=== PATIENT | male | born 1950 | race Two or more races ===

== ENCOUNTER 2024-10-19 08:45 | Emergency (ER) | payer MEDICARE, OTHER ==
[~2024-10-19] VITALS: Ht 165.1 cm; Wt 70.3 kg
[2024-10-19 08:59] VITALS: TEMP 98.7
[2024-10-19] MEDS ORDERED: ONDANSETRON HCL/PF 4 MG/2 ML VIAL ONE (09:13)
[2024-10-19] MEDS ORDERED: MORPHINE SULFATE INJ 4 MG/ML DISP.SYRIN ONE (09:13)
[2024-10-19] MEDS: ONDANSETRON HCL/PF 4 MG/2 ML VIAL IVP ONE (09:14)
[2024-10-19] MEDS: IV NS 0.9% 1,000 ML BAG IV ONE ×2 (09:15→10:35)
[2024-10-19] MEDS: MORPHINE SULFATE INJ 2 MG/ML DISP.SYRIN IV ONE (09:16)
[2024-10-19 09:24] LABS: BASOPHILS % (AUTO) 0.2 % (0.0-2.0); EOSINOPHILS % (AUTO) 0.1 % (0.0-6.0); HEMATOCRIT 42 % (39-51); HEMOGLOBIN 14.4 g/dL (13.5-17.5); LYMPHOCYTES # (AUTO) 0.9 K/uL (0.8-4.8); MEAN CORPUSCULAR HEMOGLOBIN 32 PG (26.0-33.0); MEAN CORPUSCULAR HGB CONC 34 g/dl (31.0-36.0); MEAN CORPUSCULAR VOLUME 95 fL (80-96); MONOCYTES # (AUTO) 0.9 K/uL (0.1-1.30); MONOCYTES % (AUTO) 7.6 % (2.0-12.0); NEUTROPHILS # (AUTO) 10.5 K/uL (1.8-8.9); NEUTROPHILS % (AUTO) 85.1 % (43.0-81.0); PLATELET COUNT (AUTO) 209 K/uL (150-450); RED BLOOD CELL COUNT(AUTO) 4.47 MIL/uL (4.5-6.0); WHITE BLOOD COUNT (AUTO) 12.3 K/uL (4.3-11.0)
[2024-10-19 09:38] LABS: CALCIUM, SERUM 9.6 mg/dL (8.5-10.1); CREATININE 1.4 mg/dL (0.6-1.3); POTASSIUM 4.2 mmol/L (3.5-5.1)
[2024-10-19 09:43] LABS: ALBUMIN 4.1 g/dL (3.4-5.0); BILIRUBIN,DIRECT 0.2 mg/dL (0.0-0.2); BILIRUBIN,TOTAL 0.8 mg/dL (0.2-1.0); TOTAL PROTEIN, SERUM 7.6 g/dL (6.4-8.2)
[2024-10-19 10:18] LABS: APPEARANCE,URINE CLEAR (CLEAR); BILIRUBIN,URINE NEGATIVE (NEGATIVE); BLOOD, URINE NEGATIVE Ery/uL (NEGATIVE); COLOR,URINE DARK YELLOW (YELLOW); KETONES,URINE 1+ mg/dL (NEGATIVE); LEUKOCYTE ESTERASE ,URINE NEGATIVE (NEGATIVE); NITRITE, URINE NEGATIVE (NEGATIVE); PROTEIN,URINE 1+ mg/dl (NEGATIVE); UGLUCOSE NEGATIVE (NEGATIVE); UROBILINOGEN,URINE 0.2 EU/dL (0.2)
[2024-10-19] MEDS: KETOROLAC TROMETHAMINE INJ 30 MG/ML VIAL IV ONE (10:30)
[2024-10-19] MEDS: TAMSULOSIN 0.4 MG CAP.SR.24H PO ONE (10:30)
[2024-10-19] MEDS ORDERED: KETOROLAC TROMETHAMINE INJ 30 MG/ML VIAL ONE (10:33)
[2024-10-19] MEDS ORDERED: TAMSULOSIN 0.4 MG CAP.SR.24H ONE (10:33)
[2024-10-19 10:48] LABS: ADD URINE CULTURE NO; BACTERIA,URINE Few /HPF (None Seen); MUCUS,URINE Few /LPF (None Seen); SQUAMOUS EPITHELIAL CELL,UR None Seen /HPF (None Seen); WBC,URINE 0-2 /HPF (0-3)
[2024-10-19 10:49] LABS: CALCIUM OXALATE CRYSTALS,UR Moderate /HPF (None Seen)
[2024-10-19] MEDS ORDERED: TAMS-12 PO (10:52)
[2024-10-19] MEDS ORDERED: HYDR-4209 PO (10:52)
[2024-10-19] MEDS ORDERED: IBUP-1490 PO (10:52)
[2024-10-19 11:59] VITALS: BP 130/66; O2SAT 95
== END 2024-10-19 12:00 | disposition home or self-care (01) ==
LOC: ER 09:02
DX: N13.2 Hydronephrosis with renal and ureteral calculous obstruction (principal); I10 Essential (primary) hypertension; E78.5 Hyperlipidemia, unspecified; Z90.79 Acquired absence of other genital organ(s)
CPT/HCPCS: 99285; 74176; 96374; 96361; 96375; 71045; 93005; 85025; 80048; 83690; 80076; 81001; 36415; J1885; J2270; J2405; J7030 ×2